=== PATIENT | male | born 1960 | race Caucasian/White ===

== ENCOUNTER 2016-12-09 16:21 | Emergency (ER) | payer OTHER ==
[~2016-12-09] VITALS: Ht 172.7 cm; Wt 68.0 kg
[2016-12-09 16:22] VITALS: BP 145/95; PULSE 79; RESP 14; TEMP 98.5; O2SAT 96
[2016-12-09] MEDS ORDERED: PROPARACAINE HCL 0.5% OPHT SOLN 15 ML BTL EACH EYE ONE (19:15)
[2016-12-09 19:19] VITALS: BP 147/88; PULSE 59; RESP 18; TEMP 98.4; O2SAT 100
[2016-12-09] MEDS ORDERED: ATEN25TA PO (19:19)
--- NOTE | 2016-12-09 19:49 | PD ---
HPI Chief Complaint: Eye Problems/Injury Time Seen by Provider: 19:42 Travel History International Travel<30 days: No Contact w/Intl Traveler<30days: No Traveled to known affect area: No History of Present Illness HPI 56-year-old male that presents to the ED for evaluation of possible floater to his right eye. Per patient he is visiting here from [place]. 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 Per patient the day before coming he noted that he had some crescent shaped like object noted on the right eye only. Per patient it only happened when she looks to the sides. Not looking up or down. Per patient he noted that if he looks very quickly to the right and then to the left he can even see it moved somewhat to the right and left depending on where he is looking at. He states that he has a mild ache on the right which is maybe 2 out of 10. Otherwise he denies any blurry vision or double vision. Per patient today he is noted that whenever he looks sometimes at the simin he can see light dots on dots. He states that he feels like he is moving. He does not wear any contacts or glasses. Per patient he follows with an supervisor compounding and finishing once a year and he is actually due for another appointment when he gets back on Monday but he try to call his unit director today I did tell them to come here to get evaluated. He denies any history of blood clots or any other medical problems. Patient really doesn't have much complaints other than the problem is with the right eye. He denies any problems with the left eye. No trauma. Patient states the symptoms get worse when he moves his eyes to the sides. PFSH Past Medical History Atrial Fibrillation: Yes Tetanus Vaccination: > 5 Years Influenza Vaccination: No Past Surgical History Appendectomy: Yes Cardiac Surgery: Yes (ABLATION) Social History Alcohol Use: Yes (occ) Tobacco Use: No Substance Use: No Allergies-Medications (Allergen,Severity, Reaction): Coded Allergies: No Known Allergies (Unverified , 12/09/16) Reported Meds & Prescriptions Reported Meds & Active Scripts Active Reported Atenolol 25 Mg Tab 25 Mg PO DAILY PT IS TO TAKE ONLY WHEN NEEDED. WHEN PT FEELS HIS HEART RATE INCREASE. Review of Systems General / Constitutional: No: Fever, Chills, Weight Gain, Weight Loss, Other Eyes: Positive: Blurred Vision, Pain, Visual changes, No: Diploplia, Photophobia, Drainage, Redness, Foreign Body Sensation, Tearing, Blind Spots, Blindness, Other HENT: No: Headaches, Vertigo, Lightheadedness, Sore Throat, Rhinitis, Rhinorrhea, Congestion, Nosebleed, Neck Stiffness, Neck Pain, Masses, Gingival Bleeding, Dental Difficulties, Ear Discharge, Earache, Other Cardiovascular: No: Chest Pain or Discomfort, Palpitations, Irregular Rhythm, Tachycardia, Diaphoresis, Syncope, Dyspnea on exertion, Varicosities, Edema, Cyanosis, Varicosities, Phlebitis, Claudication, Other Respiratory: No: Cough, Shortness of Breath, Wheezing, Sneezing, Orthopnea, Hemoptysis, Stridor, Night Sweats, Pleuritic Pain, Other Gastrointestinal: No: Nausea, Vomiting, Diarrhea, Abdominal Pain, Hematemesis, Hematochezia, Constipation, Changes in Bowel Habits, Indigestion, Dysphagia, Loss of Appetite, Other Genitourinary: No: Urgency, Frequency, Dysuria, Nocturia, Hematuria, Decreased Urinary Output, Oliguria, Hesitancy, Dribbling, Incontinence, Pelvic Pain, Flank Pain, Dyspareunia, Discharge, Dysmenorrhea, Menorrhagia, Metorrhagia, Vaginal Bleeding, Other Musculoskeletal: No: Myalgias, Arthralgias, Limited ROM, Weakness, Cramping, Edema, Pain, Atrophy, Other Skin: No Rash, No Itching, No Dryness, No Lumps, No Hives, No Change in Pigmentation, No Change in nails, No Alopecia, No Lesions, No Breast Lumps, No Breast Tenderness, No Breast Swelling, No Other Neurologic: No: Weakness, Dizziness, Syncope, Focal Abnormalities, Coordination Problem, Tremor, Ataxia, Headache, Change in Mentation, Slurred Speech, Paresthesia, Incontinence, Seizures, Sensory Disturbance, Other Psychiatric: No: Anxiety, Depression, Suicidal Ideations, Disorder of Thought, Mood Disorder, Substance Abuse, Homicidal Ideation, Other Endocrine: No: Heat Intolerance, Cold Intolerance, Polyuria, Polydipsia, Other Hematologic/Lymphatic: No: Easy Bruising, Lymph Node Enlargement, Other Physical Exam Narrative GENERAL: SKIN: Warm and dry. HEAD: Atraumatic. Normocephalic. EYES: Pupils equal and round 4 mm reactive to light and accommodation. No scleral icterus. No injection or drainage. EOM intact bilaterally. Peripheral vision appears to be intact bilaterally. Fluorescein dye test showed no sign of abrasion or foreign body. IOP's are 16, 19, 21. Ophthalmic exam revealed no sign of papilledema or vessel disease. No obvious foreign body noted or obvious deformity like cataract noted on examination ENT: No nasal bleeding or discharge. Mucous membranes pink and moist. NECK: Trachea midline. No JVD. CARDIOVASCULAR: Regular rate and rhythm. No murmurs, S3, S4. RESPIRATORY: No accessory muscle use. Clear to auscultation. Breath sounds equal bilaterally. GASTROINTESTINAL: Abdomen soft, non-tender, nondistended. Hepatic and splenic margins not palpable. MUSCULOSKELETAL: Extremities without clubbing, cyanosis, or edema. No obvious deformities. NEUROLOGICAL: Awake and alert. No obvious cranial nerve deficits. Motor grossly within normal limits. Five out of 5 muscle strength in the arms and legs. Normal speech. PSYCHIATRIC: Appropriate mood and affect; insight and judgment normal. Data Data Last Documented VS Vital Signs Date Time Temp Pulse Resp B/P Pulse Ox O2 Delivery O2 Flow Rate FiO2 12/09/16 19:19 98.4 59 18 147/88 100 Room Air Orders Proparacaine 0.5% Opth Soln (Alcaine 0.5 (12/09/16 19:15) MDM Medical Decision Making Medical Screen Exam Complete: Yes Emergency Medical Condition: Yes Medical Record Reviewed: Yes Differential Diagnosis Floaters versus blurry vision versus glaucoma versus normal exam Narrative Course 56-year-old male that presents to the ED for evaluation of right eye possible floaters. Patient was properly examined and was found to have signs and symptoms consistent appears to be possible floaters. Exam is unremarkable at this time. I had my attending Dr. Montelongo evaluate the patient to the data bedside ultrasound to make sure the patient doesn't have retinal detachment. Ultrasound was negative that we couldn't see anything. He recommends speaking with Dr. Salgado. I spoke with Dr. Salgado over the phone and described all the symptoms and my examination of the patient and she agrees that patient can be safely discharged and follow with supervisor compounding and finishing her or his own doctor. This was told to the patient and he was reassured that for the most part it seems like it probably has a floater that he needs to see his doctor for. He agrees and understands plan. Patient understands reasons to come back including severe pain, loss of patient for worsening symptoms. He agrees and understands plan. See ED worsening symptoms. Follow up with PCP Diagnosis Primary Impression: Vitreous floaters of right eye Referrals: Daily Salgado MD Patient Instructions: General Instructions Additional Instructions: Ok to go to work. F/u with your supervisor compounding and finishing on monday. See ED if you lose your vision or pain worsens. Med/Other Pt SpecificInfo: No Change to Meds Disposition: 01 DISCHARGE HOME Condition: Stable Brodie Ray Dec 09, 2016 19:49
--- NOTE | 2016-12-21 11:09 | PD ---
Data Data Orders Proparacaine 0.5% Opth Soln (Alcaine 0.5 (12/09/16 19:15) MDM Supervised Visit with MALA: Yes Procedures Procedure Narrative Ocular ultrasound of the right eye: Tegaderm placed over closed right eyelid. Using the linear ultrasound probe, I evaluated the patient's eye. No obvious retinal detachment or vitreous hemorrhage. Normal appearing optic nerve. Diagnosis Primary Impression: Vitreous floaters of right eye Referrals: Daily Salgado MD Patient Instructions: General Instructions Departure Forms: Tests/Procedures Additional Instruction: Ok to go to work. 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 See ED if you lose your vision or pain worsens. Disposition: 01 DISCHARGE HOME Condition: Stable Zurdo Montelongo MD Dec 21, 2016 11:09
== END 2016-12-09 21:21 | disposition home or self-care (01) ==
LOC: NEPE 16:21
DX: H43.391 Other vitreous opacities, right eye (principal)
CPT/HCPCS: 99283